=== PATIENT | female | born 1960 | race African-American/Black ===

== ENCOUNTER 2023-09-18 19:01 | Emergency (ER) | payer OTHER ==
[~2023-09-18] VITALS: Ht 160 cm; Wt 55.0 kg
[2023-09-18 19:10] VITALS: O2SAT 98
[2023-09-18 19:52] LABS: BASOPHILS % 0.4 % (0.0-2.0); HEMATOCRIT. 31.7 % (36.0-48.0); HEMOGLOBIN. 10.5 g/dL (12.0-16.0); LYMPHOCYTES % 8.4 % (20.0-50.0); MEAN CORPUSCULAR HEMOGLOBIN 29.9 pg (28.0-32.0); MEAN CORPUSCULAR HGB CONC 33.1 g/dL (31.0-37.0); MEAN CORPUSCULAR VOLUME 90.3 fL (81.0-99.0); MEAN PLATELET VOLUME 8.4 fl (7.4-10.4); MONOCYTES % 8.1 % (2.0-8.0); NEUTROPHILS % 82.1 % (40.0-76.0); PLATELET 459 x1000/uL (130-400); RED BLOOD CELL COUNT 3.51 mill/uL (4.2-5.4); RED CELL DISTRIBUTION WIDTH 13.9 % (11.6-14.6); WHITE BLOOD COUNT 6.7 x1000/uL (4.5-11.0)
[2023-09-18 19:57] LABS: CHLORIDE 104 mEq/L (98-107); POTASSIUM 4.8 mEq/L (3.5-5.1); SODIUM 134 mEq/L (136-145)
[2023-09-18 19:58] LABS: CALCIUM 9.1 mg/dL (8.7-10.4); CARBON DIOXIDE 22 mEq/L (21-32)
[2023-09-18 20:03] LABS: GLUCOSE 81 mg/dL (70-105); UREA NITROGEN BLOOD 57 mg/dL (9-23)
[2023-09-18 20:04] LABS: ALANINE AMINOTRANSFERASE 16 IU/L (10-49); ASPARTATE AMINOTRANSFERASE 23 IU/L (<34)
[2023-09-18 20:05] LABS: BILIRUBIN TOTAL 0.2 mg/dL (0.1-1.0); PROTEIN TOTAL 6.4 g/dL (6.0-8.3)
[2023-09-18] MEDS: ENALAPRIL 2.5MG/2ML VIAL 2ML IV ONE (22:47)
[2023-09-18] MEDS: CLONIDINE 0.1MG TABLET PO PRN (23:56)
[2023-09-18] MEDS: DEXTROSE 50% WATER 50ML SYRINGE IV PRN (23:56)
[2023-09-19] MEDS ORDERED: HYDRALAZINE 20MG/ML VIAL IV PRN (01:30)
[2023-09-19] MEDS: HYDRALAZINE 20MG/ML VIAL IV NR (01:37)
[2023-09-19 02:01] VITALS: BP 189/74; PULSE 72; RESP 14; TEMP 98.4
== END 2023-09-19 02:08 | disposition short-term general hospital (02) ==
LOC: ER 19:01
DX: E16.1 Other hypoglycemia (principal); E11.9 Type 2 diabetes mellitus without complications; I10 Essential (primary) hypertension; Z86.73 Personal history of transient ischemic attack (TIA), and cerebral infarction without residual deficits; Z88.2 Allergy status to sulfonamides; Z88.8 Allergy status to other drugs, medicaments and biological substances
CPT/HCPCS: 80053; 82962 ×2; 85025; 36415; 96374; 96375 ×2; 99285; J3490; Z7610 ×5; J0360

== ENCOUNTER 2025-02-17 19:54 | Inpatient (IN) | payer OTHER ==
[~2025-02-17] VITALS: Ht 162.6 cm; Wt 63.5 kg
[2025-02-17 20:43] LABS: HEMATOCRIT. 26.4 % (36.0-48.0); HEMOGLOBIN. 9.1 g/dL (12.0-16.0); MEAN PLATELET VOLUME 7.3 fl (7.4-10.4); PLATELET 396 x1000/uL (130-400); RED BLOOD CELL COUNT 2.65 mill/uL (4.2-5.4); RED CELL DISTRIBUTION WIDTH 14.1 % (11.6-14.6)
[2025-02-17 20:56] LABS: UREA NITROGEN BLOOD 45 mg/dL (9-23)
[2025-02-17 20:57] LABS: ASPARTATE AMINOTRANSFERASE 20 IU/L (<34)
[2025-02-17 20:58] LABS: BILIRUBIN DIRECT 0.1 mg/dL (<=3.0); BILIRUBIN TOTAL 0.4 mg/dL (0.1-1.0); PROTEIN TOTAL 7.5 g/dL (6.0-8.3)
[2025-02-17 21:01] LABS: INR 1.0
[2025-02-17 21:02] LABS: TROPONIN I HIGH SENSITIVITY 70 ng/L (3.0-34)
[2025-02-17 21:03] LABS: CREATININE 5.3 mg/dL (0.6-1.0)
[2025-02-17 21:06] LABS: EOSINOPHILS % MANUAL 4.0 % (0.0-5.0); LYMPHOCYTES % MANUAL 35.0 % (20.0-60.0); MONOCYTES % MANUAL 14.0 % (2.0-8.0); NEUTROPHILS % MANUAL 47.0 % (45.0-75.0); PLATELET ESTIMATE NORMAL
[2025-02-17] MEDS: ASPIRIN 81MG EC TABLET PO ONE (21:11)
[2025-02-17] MEDS: NITROGLYCERIN 0.4MG TABLET SL SL ONE (22:12)
[2025-02-17] MEDS: MORPHINE SULFATE 2 MG/ML INJ (NOT FOR IM USE) IV ONE (22:13)
[2025-02-17] MEDS: LABETALOL 5MG/ML 4ML INJ IV ONE (22:13)
[2025-02-18] VITALS (7 sets, daily range): BP systolic 126–168; BP diastolic 56–86; PULSE 58–91; RESP 10–20; TEMP 36.4–36.8; O2SAT 96–98
[2025-02-18 00:11] LABS: TROPONIN I HIGH SENSITIVITY 81 ng/L (3.0-34)
[2025-02-18 01:24] LABS: TROPONIN I HIGH SENSITIVITY 95 ng/L (3.0-34)
[2025-02-18] MEDS: BLOOD SUGAR DIAGNOSTIC STRIP TEST SCH (07:10)
[2025-02-18] MEDS: DEXTROSE 50% WATER 50ML SYRINGE IV PRN (07:38)
[2025-02-18] MEDS: INSULIN LISPRO 100 UNITS/ML SUBCUT SCH (07:42)
[2025-02-18] MEDS ORDERED: PANTOPRAZOLE SODIUM 40 MG/VIAL IV SCH (09:00)
[2025-02-18] MEDS: AMLODIPINE 10MG TABLET PO SCH (10:12)
[2025-02-18] MEDS: ASPIRIN 325MG EC TABLET PO SCH (10:12)
[2025-02-18] MEDS: ENOXAPARIN 30MG/0.3ML SYR SUBCUT SCH (10:13)
[2025-02-18] MEDS: ACETAMINOPHEN 325MG TABLET PO PRN (11:23)
[2025-02-18 12:24] LABS: HEMATOCRIT. 25.0 % (36.0-48.0); HEMOGLOBIN. 8.5 g/dL (12.0-16.0); MEAN PLATELET VOLUME 7.8 fl (7.4-10.4); PLATELET 341 x1000/uL (130-400); RED BLOOD CELL COUNT 2.51 mill/uL (4.2-5.4); RED CELL DISTRIBUTION WIDTH 13.9 % (11.6-14.6)
[2025-02-18 12:40] LABS: CREATINE KINASE MB FRACTION 2.0 ng/mL (0.5-3.6)
[2025-02-18 12:43] LABS: UREA NITROGEN BLOOD 56 mg/dL (9-23)
[2025-02-18 12:44] LABS: TROPONIN I HIGH SENSITIVITY 87 ng/L (3.0-34)
[2025-02-18 12:45] LABS: CREATININE 5.8 mg/dL (0.6-1.0)
[2025-02-18 13:21] LABS: PHOSPHORUS 9.0 mg/dL (2.5-4.9)
[2025-02-18 13:59] LABS: FOLIC ACID (FOLATE) SERUM > 20.00 ng/mL (>5.38)
[2025-02-18 14:00] LABS: VITAMIN B12 SERUM 240 pg/mL (211-911)
[2025-02-18] MEDS: SEVELAMER CARBONATE 800 MG TABLET PO SCH (14:21)
[2025-02-18 14:32] LABS: HEPATITIS C AB NON REACTIVE (Neg) (Negative)
[2025-02-18 16:20] LABS: EOSINOPHILS % MANUAL 5.0 % (0.0-5.0); LYMPHOCYTES % MANUAL 25.0 % (20.0-60.0); MONOCYTES % MANUAL 10.0 % (2.0-8.0); NEUTROPHILS % MANUAL 60.0 % (45.0-75.0); PLATELET ESTIMATE NORMAL
[2025-02-18] MEDS: PANTOPRAZOLE 40MG DR TABLET PO SCH (17:20)
[2025-02-18] MEDS: CELECOXIB 200MG CAPSULE PO SCH (17:20)
[2025-02-18] MEDS: CLONIDINE 0.1MG TABLET PO PRN (18:53)
[2025-02-18 20:52] LABS: CREATINE KINASE MB FRACTION 2.6 ng/mL (0.5-3.6)
[2025-02-18 21:02] LABS: TROPONIN I HIGH SENSITIVITY 72 ng/L (3.0-34)
[2025-02-18] MEDS: EPOETIN ALFA-EPBX 4,000 UNITS/ML VIAL SUBCUT SCH (21:17)
[2025-02-18] MEDS: LOSARTAN 100 MG TABLET PO SCH (21:17)
[2025-02-18] MEDS: FAMOTIDINE 20MG TABLET PO SCH (21:17)
[2025-02-19] VITALS (9 sets, daily range): BP systolic 124–148; BP diastolic 45–63; PULSE 60–87; RESP 11–24; TEMP 36.5–36.8; O2SAT 96–100
[2025-02-19 06:26] LABS: BASOPHILS % 0.4 % (0.0-2.0); EOSINOPHILS % 4.2 % (0.0-5.0); HEMATOCRIT. 27.1 % (36.0-48.0); HEMOGLOBIN. 8.9 g/dL (12.0-16.0); LYMPHOCYTES % 15.8 % (20.0-50.0); MEAN PLATELET VOLUME 7.7 fl (7.4-10.4); MONOCYTES % 9.9 % (2.0-8.0); NEUTROPHILS % 69.7 % (40.0-76.0); PLATELET 368 x1000/uL (130-400); RED BLOOD CELL COUNT 2.68 mill/uL (4.2-5.4); RED CELL DISTRIBUTION WIDTH 14.6 % (11.6-14.6)
[2025-02-19 06:55] LABS: CREATININE 4.5 mg/dL (0.6-1.0); T4 FREE 1.44 ng/dL (0.89-1.76); UREA NITROGEN BLOOD 39 mg/dL (9-23)
[2025-02-19 06:57] LABS: ASPARTATE AMINOTRANSFERASE 17 IU/L (<34); BILIRUBIN DIRECT 0.1 mg/dL (<=3.0); BILIRUBIN TOTAL 0.3 mg/dL (0.1-1.0); PROTEIN TOTAL 6.5 g/dL (6.0-8.3)
[2025-02-19] MEDS: ACETAMINOPHEN 325MG TABLET PO PRN (09:17)
[2025-02-19] MEDS: CELECOXIB 200MG CAPSULE PO SCH (12:34)
[2025-02-19] MEDS: IPRATROPIUM/ALBUTEROL 0.5-3(2.5)MG/3ML NEB HHN PRN (12:36)
== END 2025-02-19 17:39 | disposition short-term general hospital (02) | DRG 280 ==
LOC: ER 19:54 → EDBEDREQTM 23:28 → EDBEDREQ 23:28 → ENRESERV 02-18 00:56 → 3WST 02-18 01:31
PROVIDERS: ADMIT Hospitalist; ATTEND Hospitalist
PROC: 5A1D70Z Performance of Urinary Filtration, Intermittent, Less than 6 Hours Per Day (ICD-10-PCS; principal; 2025-02-18)
DX: I16.1 Hypertensive emergency (principal); L89.153 Pressure ulcer of sacral region, stage 3; I21.4 Non-ST elevation (NSTEMI) myocardial infarction; N18.6 End stage renal disease; E83.39 Other disorders of phosphorus metabolism; D63.1 Anemia in chronic kidney disease; G25.3 Myoclonus; I13.2 Hypertensive heart and chronic kidney disease with heart failure and with stage 5 chronic kidney disease, or end stage renal disease; Z99.2 Dependence on renal dialysis; E11.22 Type 2 diabetes mellitus with diabetic chronic kidney disease; N25.81 Secondary hyperparathyroidism of renal origin; K21.9 Gastro-esophageal reflux disease without esophagitis; D53.9 Nutritional anemia, unspecified; E78.5 Hyperlipidemia, unspecified; Z99.3 Dependence on wheelchair; Z55.6 Problems related to health literacy; Z59.82 Transportation insecurity; Z79.01 Long term (current) use of anticoagulants; Z79.4 Long term (current) use of insulin; Z79.899 Other long term (current) drug therapy; Z82.49 Family history of ischemic heart disease and other diseases of the circulatory system; Z88.1 Allergy status to other antibiotic agents; Z88.2 Allergy status to sulfonamides; Z90.49 Acquired absence of other specified parts of digestive tract
CPT/HCPCS: 36415; 71045; 80048; 80076; 80320; 82550; 82553; 82607; 82728; 82746; 82962; 83036; 83540; 83550; 83735; 83880; 84100; 84439; 84443; 84484; 85025; 86705; 87340; 90935; 93005; 93970; 93971; 94070; 94640; 96374; 96375; 97166; 99291; A4606; J0885; J1650; J2270; J3490; G0480

== ENCOUNTER 2025-03-19 21:35 | Emergency (ER) | payer OTHER, MEDICAID ==
[~2025-03-19] VITALS: Ht 165.1 cm; Wt 61.0 kg
[2025-03-19 21:39] VITALS: O2SAT 100
[2025-03-19 22:48] LABS: HEMATOCRIT. 36.2 % (36.0-48.0); HEMOGLOBIN. 11.8 g/dL (12.0-16.0); MEAN PLATELET VOLUME 8.0 fl (7.4-10.4); PLATELET 395 x1000/uL (130-400); RED BLOOD CELL COUNT 3.57 mill/uL (4.2-5.4); RED CELL DISTRIBUTION WIDTH 15.4 % (11.6-14.6)
[2025-03-19 23:02] LABS: EOSINOPHILS % MANUAL 4.0 % (0.0-5.0); LYMPHOCYTES % MANUAL 25.0 % (20.0-60.0); MONOCYTES % MANUAL 25.0 % (2.0-8.0); NEUTROPHILS % MANUAL 46.0 % (45.0-75.0); PLATELET ESTIMATE NORMAL
[2025-03-19 23:07] LABS: INR 1.0
[2025-03-19 23:09] LABS: CREATININE 4.8 mg/dL (0.6-1.0)
[2025-03-19 23:10] LABS: ETHANOL BLOOD < 10 mg/dL (<10); PROTEIN TOTAL 6.7 g/dL (6.0-8.3); UREA NITROGEN BLOOD 50 mg/dL (9-23)
[2025-03-19 23:11] LABS: ASPARTATE AMINOTRANSFERASE 26 IU/L (<34)
[2025-03-19 23:12] LABS: BILIRUBIN DIRECT < 0.1 mg/dL (<=3.0); BILIRUBIN TOTAL < 0.2 mg/dL (0.1-1.0)
[2025-03-19 23:23] LABS: TROPONIN I HIGH SENSITIVITY 49 ng/L (3.0-34)
[2025-03-20] MEDS ORDERED: IPRATROPIUM/ALBUTEROL 0.5-3(2.5)MG/3ML NEB HHN PRN (00:45)
[2025-03-20] MEDS ORDERED: ONDANSETRON HCL 4MG/2ML INJ IV PRN (00:45)
[2025-03-20] MEDS ORDERED: GUAIFENESIN 200MG/10ML SUGAR FREE UDC PO PRN (00:45)
[2025-03-20] MEDS ORDERED: CLONIDINE 0.1MG TABLET PO PRN (00:45)
[2025-03-20] MEDS ORDERED: DOCUSATE SODIUM 100MG CAPSULE PO PRN (00:45)
[2025-03-20] MEDS ORDERED: ACETAMINOPHEN 325MG TABLET PO PRN ×2 (00:45)
[2025-03-20] MEDS ORDERED: DEXTROSE 50% WATER 50ML SYRINGE IV PRN (00:45)
[2025-03-20] MEDS: CELECOXIB 100MG CAPSULE PO NR (01:29)
[2025-03-20] MEDS: LOSARTAN 100 MG TABLET PO SCH (01:29)
[2025-03-20 02:24] LABS: HEMATOCRIT. 37.6 % (36.0-48.0); HEMOGLOBIN. 12.1 g/dL (12.0-16.0); MEAN PLATELET VOLUME 7.9 fl (7.4-10.4); PLATELET 428 x1000/uL (130-400); RED BLOOD CELL COUNT 3.68 mill/uL (4.2-5.4); RED CELL DISTRIBUTION WIDTH 15.8 % (11.6-14.6)
[2025-03-20 03:09] LABS: TROPONIN I HIGH SENSITIVITY 47 ng/L (3.0-34)
[2025-03-20 03:20] VITALS: BP 164/68; PULSE 76; RESP 12; TEMP 36.7; O2SAT 95
[2025-03-20 03:38] LABS: EOSINOPHILS % MANUAL 7.0 % (0.0-5.0); LYMPHOCYTES % MANUAL 24.0 % (20.0-60.0); MONOCYTES % MANUAL 21.0 % (2.0-8.0); NEUTROPHILS % MANUAL 48.0 % (45.0-75.0)
[2025-03-20 03:39] LABS: PLATELET ESTIMATE NORMAL
[2025-03-20 04:11] LABS: VITAMIN B12 SERUM 285 pg/mL (211-911)
[2025-03-20 07:02] LABS: FOLIC ACID (FOLATE) SERUM 7.78 ng/mL (>5.38)
[2025-03-20] MEDS ORDERED: INSULIN LISPRO 100 UNITS/ML SUBCUT SCH (08:20)
[2025-03-20] MEDS ORDERED: SEVELAMER CARBONATE 800 MG TABLET PO SCH (09:00)
[2025-03-20] MEDS ORDERED: BLOOD SUGAR DIAGNOSTIC STRIP TEST SCH (09:00)
[2025-03-20] MEDS ORDERED: ENOXAPARIN 30MG/0.3ML SYR SUBCUT SCH (09:00)
[2025-03-20] MEDS ORDERED: AMLODIPINE 5MG TABLET PO SCH (09:00)
[2025-03-20] MEDS ORDERED: ASPIRIN 81MG EC TABLET PO SCH (09:00)
[2025-03-20] MEDS ORDERED: ZINC SULFATE 220 MG ( 50 ) CAPSULE PO SCH (09:00)
[2025-03-20] MEDS ORDERED: ASCORBIC ACID 250 MG TABLET PO SCH (09:00)
[2025-03-20] MEDS ORDERED: ATORVASTATIN CALCIUM 40MG TABLET PO SCH (21:00)
[2025-03-20] MEDS ORDERED: FAMOTIDINE 20MG TABLET PO SCH (21:00)
== END 2025-03-20 03:25 | disposition short-term general hospital (02) ==
LOC: ER 21:35 → CMPBEDREQ 03-20 08:40
DX: R07.89 Other chest pain (principal); E11.22 Type 2 diabetes mellitus with diabetic chronic kidney disease; I12.0 Hypertensive chronic kidney disease with stage 5 chronic kidney disease or end stage renal disease; N18.6 End stage renal disease; I69.30 Unspecified sequelae of cerebral infarction; Z99.3 Dependence on wheelchair; Z79.82 Long term (current) use of aspirin; Z79.899 Other long term (current) drug therapy; Z99.2 Dependence on renal dialysis; Z88.2 Allergy status to sulfonamides; Z88.1 Allergy status to other antibiotic agents
CPT/HCPCS: 36415; 71045; 80048; 80076; 80320; 82607; 82728; 82746; 82962; 83036; 83540; 83550; 83735; 83880; 84484; 85025; 85044; 86850; 86900; 93005; 99285; G0480